=== PATIENT | female | born 1935 | race Caucasian/White ===

== ENCOUNTER → 2017-03-30 | Outpatient (CLI) | payer OTHER ==
[~2017-03-30] VITALS: Ht 152.4 cm; Wt 53.9 kg
[~2017-03-30] MED LIST: ALEN70TA2 PO; AMLO-512 PO; ASCO500T20 PO; ASPI-891 PO; ATOR10TA84 PO; BENA10TA3 PO; CLOP75 PO; DOXY50 PO; DOXY50CA2 PO; LIDOCAINE HCL 2% 5 ML JELLY TP ONE; MULT-1203 PO; TRAM50TA2 PO; VICOT PO; ZINC50TA64 PO
[2017-03-30 09:32] VITALS: BP 130/63
== END | disposition home or self-care (01) ==
LOC: HBOWC 08:55
PROVIDERS: ATTEND Emergency Medicine
DX: T86.828 Other complications of skin graft (allograft) (autograft) (principal); S81.811D Laceration without foreign body, right lower leg, subsequent encounter; I73.9 Peripheral vascular disease, unspecified; I10 Essential (primary) hypertension; Z86.73 Personal history of transient ischemic attack (TIA), and cerebral infarction without residual deficits; Y83.2 Surgical operation with anastomosis, bypass or graft as the cause of abnormal reaction of the patient, or of later complication, without mention of misadventure at the time of the procedure
CPT/HCPCS: 11042; 87070; 87205

== ENCOUNTER → 2017-04-04 | Outpatient (CLI) | payer OTHER ==
[~2017-04-04] MED LIST changes: -CLOP75 PO; -DOXY50 PO; -DOXY50CA2 PO; -LIDOCAINE HCL 2% 5 ML JELLY TP ONE; -VICOT PO
== END | disposition home or self-care (01) ==
LOC: RADPV 10:30
PROVIDERS: ATTEND Emergency Medicine
DX: S81.811A Laceration without foreign body, right lower leg, initial encounter (principal); R22.42 Localized swelling, mass and lump, left lower limb; W18.30XA Fall on same level, unspecified, initial encounter
CPT/HCPCS: 93880; 93925

== ENCOUNTER → 2017-04-06 | Outpatient (CLI) | payer OTHER ==
[2017-04-06 09:41] VITALS: BP 134/65
== END | disposition home or self-care (01) ==
LOC: HBOWC 09:15
PROVIDERS: ATTEND Emergency Medicine
DX: S91.101A Unspecified open wound of right great toe without damage to nail, initial encounter (principal); S81.801D Unspecified open wound, right lower leg, subsequent encounter; I73.9 Peripheral vascular disease, unspecified; Z86.73 Personal history of transient ischemic attack (TIA), and cerebral infarction without residual deficits; I87.2 Venous insufficiency (chronic) (peripheral); I10 Essential (primary) hypertension; X58.XXXD Exposure to other specified factors, subsequent encounter; X58.XXXA Exposure to other specified factors, initial encounter; Y93.89 Activity, other specified; Y92.89 Other specified places as the place of occurrence of the external cause; Y99.8 Other external cause status
CPT/HCPCS: 11042

== ENCOUNTER → 2017-04-13 | Outpatient (CLI) | payer OTHER ==
[~2017-04-13] MED LIST changes: +GENTAMICIN SULFATE 0.1% 15 GM OINTMENT TP ONE; +LIDOCAINE HCL 4% 50 ML SOLUTION TP ONE
[2017-04-13 09:30] VITALS: BP 129/69
== END | disposition home or self-care (01) ==
LOC: HBOWC 09:05
PROVIDERS: ATTEND Emergency Medicine
DX: S81.801D Unspecified open wound, right lower leg, subsequent encounter (principal); I87.2 Venous insufficiency (chronic) (peripheral); I10 Essential (primary) hypertension; I73.9 Peripheral vascular disease, unspecified; Z86.73 Personal history of transient ischemic attack (TIA), and cerebral infarction without residual deficits; X58.XXXD Exposure to other specified factors, subsequent encounter
CPT/HCPCS: 11042

== ENCOUNTER → 2017-04-20 | Outpatient (CLI) | payer OTHER ==
[~2017-04-20] MED LIST changes: -GENTAMICIN SULFATE 0.1% 15 GM OINTMENT TP ONE; -LIDOCAINE HCL 4% 50 ML SOLUTION TP ONE
[2017-04-20 10:40] VITALS: BP 136/65
== END | disposition home or self-care (01) ==
LOC: HBOWC 09:33
PROVIDERS: ATTEND Emergency Medicine
DX: S81.801D Unspecified open wound, right lower leg, subsequent encounter (principal); I87.2 Venous insufficiency (chronic) (peripheral); I10 Essential (primary) hypertension; I73.9 Peripheral vascular disease, unspecified; Z86.73 Personal history of transient ischemic attack (TIA), and cerebral infarction without residual deficits; X58.XXXD Exposure to other specified factors, subsequent encounter
CPT/HCPCS: 11042

== ENCOUNTER → 2017-04-27 | Outpatient (CLI) | payer OTHER ==
[~2017-04-27] MED LIST changes: +GENTAMICIN SULFATE 0.1% 15 GM OINTMENT TP ONE; +LIDOCAINE HCL 2% 5 ML JELLY TP ONE; +LIDOCAINE HCL 4% 50 ML SOLUTION TP ONE
[2017-04-27 08:43] VITALS: BP 133/72
== END | disposition home or self-care (01) ==
LOC: HBOWC 08:29
PROVIDERS: ATTEND Emergency Medicine
DX: S81.801D Unspecified open wound, right lower leg, subsequent encounter (principal); I87.2 Venous insufficiency (chronic) (peripheral); I10 Essential (primary) hypertension; I73.9 Peripheral vascular disease, unspecified; Z86.73 Personal history of transient ischemic attack (TIA), and cerebral infarction without residual deficits; X58.XXXD Exposure to other specified factors, subsequent encounter
CPT/HCPCS: 11042

== ENCOUNTER → 2017-05-11 | Outpatient (CLI) | payer OTHER ==
[~2017-05-11] MED LIST changes: -GENTAMICIN SULFATE 0.1% 15 GM OINTMENT TP ONE; -LIDOCAINE HCL 2% 5 ML JELLY TP ONE; -LIDOCAINE HCL 4% 50 ML SOLUTION TP ONE
[2017-05-11 09:42] VITALS: BP 121/67
== END | disposition home or self-care (01) ==
LOC: HBOWC 08:54
PROVIDERS: ATTEND Emergency Medicine
DX: S81.801D Unspecified open wound, right lower leg, subsequent encounter (principal); I87.2 Venous insufficiency (chronic) (peripheral); I10 Essential (primary) hypertension; I73.9 Peripheral vascular disease, unspecified; Z86.73 Personal history of transient ischemic attack (TIA), and cerebral infarction without residual deficits; X58.XXXD Exposure to other specified factors, subsequent encounter
CPT/HCPCS: 11042

== ENCOUNTER → 2017-05-22 | Outpatient (CLI) | payer OTHER ==
[~2017-05-22] MED LIST changes: +LIDOCAINE HCL 2% 5 ML JELLY TP ONE
[2017-05-22 09:22] VITALS: BP 126/64
== END | disposition home or self-care (01) ==
LOC: HBOWC 08:52
PROVIDERS: ATTEND Emergency Medicine
DX: S81.801D Unspecified open wound, right lower leg, subsequent encounter (principal); I87.2 Venous insufficiency (chronic) (peripheral); I10 Essential (primary) hypertension; I73.9 Peripheral vascular disease, unspecified; Z86.73 Personal history of transient ischemic attack (TIA), and cerebral infarction without residual deficits; X58.XXXD Exposure to other specified factors, subsequent encounter
CPT/HCPCS: 11042

== ENCOUNTER → 2017-05-29 | Outpatient (CLI) | payer OTHER ==
[2017-05-29 10:39] VITALS: BP 123/70
== END | disposition home or self-care (01) ==
LOC: HBOWC 10:06
PROVIDERS: ATTEND Emergency Medicine
DX: S81.801D Unspecified open wound, right lower leg, subsequent encounter (principal); I87.2 Venous insufficiency (chronic) (peripheral); I10 Essential (primary) hypertension; I73.9 Peripheral vascular disease, unspecified; Z86.73 Personal history of transient ischemic attack (TIA), and cerebral infarction without residual deficits; X58.XXXD Exposure to other specified factors, subsequent encounter
CPT/HCPCS: 11042

== ENCOUNTER → 2017-06-05 | Outpatient (CLI) | payer OTHER ==
[~2017-06-05] MED LIST changes: -LIDOCAINE HCL 2% 5 ML JELLY TP ONE
[2017-06-05 10:37] VITALS: BP 133/56
== END | disposition home or self-care (01) ==
LOC: HBOWC 08:36
PROVIDERS: ATTEND Emergency Medicine
DX: S81.801D Unspecified open wound, right lower leg, subsequent encounter (principal); I87.2 Venous insufficiency (chronic) (peripheral); X58.XXXD Exposure to other specified factors, subsequent encounter
CPT/HCPCS: 11042

== ENCOUNTER → 2017-06-12 | Outpatient (CLI) | payer OTHER ==
[2017-06-12 09:11] VITALS: BP 122/71
== END | disposition home or self-care (01) ==
LOC: HBOWC 08:45
PROVIDERS: ATTEND Emergency Medicine
DX: S81.801D Unspecified open wound, right lower leg, subsequent encounter (principal); I87.2 Venous insufficiency (chronic) (peripheral); I10 Essential (primary) hypertension; I73.9 Peripheral vascular disease, unspecified; Z86.73 Personal history of transient ischemic attack (TIA), and cerebral infarction without residual deficits; X58.XXXD Exposure to other specified factors, subsequent encounter
CPT/HCPCS: 11042

== ENCOUNTER → 2017-06-26 | Outpatient (CLI) | payer OTHER ==
[~2017-06-26] MED LIST changes: +LIDOCAINE HCL 2% 5 ML JELLY TP ONE; +SILVER NITRATE APPLICATOR 1 EA STICK TP ONE
[2017-06-26 10:00] VITALS: BP 115/54
== END | disposition home or self-care (01) ==
LOC: HBOWC 10:15
PROVIDERS: ATTEND Emergency Medicine
DX: S81.801D Unspecified open wound, right lower leg, subsequent encounter (principal); I87.2 Venous insufficiency (chronic) (peripheral); I10 Essential (primary) hypertension; I73.9 Peripheral vascular disease, unspecified; Z86.73 Personal history of transient ischemic attack (TIA), and cerebral infarction without residual deficits; X58.XXXD Exposure to other specified factors, subsequent encounter
CPT/HCPCS: 11042; Z7610

== ENCOUNTER → 2017-07-10 | Outpatient (CLI) | payer OTHER ==
[~2017-07-10] MED LIST changes: -LIDOCAINE HCL 2% 5 ML JELLY TP ONE; -SILVER NITRATE APPLICATOR 1 EA STICK TP ONE
[2017-07-10 11:19] VITALS: BP 100/53
== END | disposition home or self-care (01) ==
LOC: HBOWC 09:50
PROVIDERS: ATTEND Emergency Medicine
DX: S81.801D Unspecified open wound, right lower leg, subsequent encounter (principal); I10 Essential (primary) hypertension; I87.2 Venous insufficiency (chronic) (peripheral); I73.9 Peripheral vascular disease, unspecified; Z86.73 Personal history of transient ischemic attack (TIA), and cerebral infarction without residual deficits; X58.XXXD Exposure to other specified factors, subsequent encounter

== ENCOUNTER 2018-10-15 07:02 | Inpatient (IN) | payer OTHER ==
[~2018-10-15] VITALS: Ht 152.4 cm; Wt 54.5 kg
[~2018-10-15 07:02] MED LIST changes: +ALEN70TA10 PO; -ALEN70TA2 PO; -ASCO500T20 PO; +BENA10TA12 PO; -BENA10TA3 PO; +DSS100 PO; +POLY17PO PO; +RINGERS SOLUTION,LACTATED 1,000 ML IV ONE; +SERT50TA12 PO; -ZINC50TA64 PO
[2018-10-15] MEDS ORDERED: TRANEXAMIC ACID 1,000 MG in DEXTROSE 5%-WATER 50 ML IV ONE (08:15)
[2018-10-15] MEDS ORDERED: BUPIVACAINE LIPOSOME/PF 1.3%-13.3MG/ML SUSPENSION 20 ML VIAL INJ ONE (08:15)
[2018-10-15] MEDS ORDERED: HYDROmorphone 2 MG/ML SYRINGE IVP PRN ×2 (08:30)
[2018-10-15] MEDS ORDERED: CYCLOBENZAPRINE HCL 10 MG TABLET PO PRN (08:30)
[2018-10-15] MEDS ORDERED: ONDANSETRON HCL 4 MG/2 ML VIAL IVP PRN ×2 (08:30→12:00)
[2018-10-15] MEDS ORDERED: FentaNYL CITRATE-PF 100 MCG/2 ML VIAL IVP PRN (08:30)
[2018-10-15] MEDS ORDERED: MEPERIDINE-PF 25 MG/ML VIAL IVP PRN (08:30)
[2018-10-15] MEDS ORDERED: OxyCODONE HCL 5 MG IR TABLET PO PRN (08:30)
[2018-10-15] MEDS ORDERED: DEXAMETHASONE SOD PHOS 4 MG/ML VIAL ONE (08:42)
[2018-10-15] MEDS ORDERED: BUPIVACAINE HCL/PF 0.25% 30 ML VIAL ONE (08:42)
[2018-10-15] MEDS ORDERED: CELECOXIB 200 MG CAPSULE ONE (08:47)
[2018-10-15] MEDS ORDERED: ACETAMINOPHEN 1000 MG/ISO-OSM 100 ML IV ONE (08:47)
[2018-10-15] MEDS: ACETAMINOPHEN 1000 MG/ISO-OSM 100 ML IV SCH ×3 (08:51→22:04)
[2018-10-15] MEDS: CELECOXIB 200 MG CAPSULE PO SCH ×2 (08:51→22:04)
[2018-10-15] MEDS ORDERED: BUPIVACAINE HCL/DEX-WATER/PF 0.75% 2 ML AMP ONE (09:01)
[2018-10-15] MEDS ORDERED: PROPOFOL 1000 MG/ISO-OSM 200 ML IV ONE (09:01)
[2018-10-15] MEDS ORDERED: SODIUM CHLORIDE 0.9% 10 ML ONE (09:49)
[2018-10-15] MEDS ORDERED: BACITRACIN 50,000 UNITS/VIAL ONE (09:50)
[2018-10-15] MEDS ORDERED: RINGERS SOLUTION,LACTATED 1,000 ML IV ONE (10:48)
[2018-10-15] MEDS ORDERED: SODIUM CHLORIDE 0.9% 100 ML ONE (10:48)
[2018-10-15] MEDS ORDERED: ZOLPIDEM TARTRATE 10 MG TABLET PO PRN (12:00)
[2018-10-15] MEDS ORDERED: DiphenhydrAMINE HCL 50 MG/ML VIAL IVP PRN (12:00)
[2018-10-15] MEDS ORDERED: MAG HYDROX/AL HYDROX/SIMETH 30 ML SUSP UDCUP PO PRN (12:00)
[2018-10-15] MEDS ORDERED: BISACODYL 10 MG RECTAL RECTAL SUPPOSITORY PR PRN (12:00)
[2018-10-15 13:34] VITALS: BP 142/83
[2018-10-15] MEDS: DEXTROSE 5%-LACTATED RINGERS 1,000 ML IV SCH (15:07)
[2018-10-15 16:14] VITALS: BP 141/88
[2018-10-15] MEDS: CeFAZolin 1 GM/DEXTROSE 50 ML IV SCH (18:12)
[2018-10-15 18:50] LABS: APPEARANCE,URINE CLEAR (CLEAR); BILIRUBIN,URINE NEGATIVE (NEGATIVE); GLUCOSE, URINE (UA) 500 mg/dL (NEGATIVE); KETONES,URINE NEGATIVE (NEGATIVE); LEUKOCYTE ESTERASE ,URINE NEGATIVE (NEGATIVE); NITRATE,URINE NEGATIVE (NEGATIVE); OCCULT BLOOD,URINE NEGATIVE (NEGATIVE); PROTEIN,URINE NEGATIVE (NEGATIVE); UROBILINOGEN,URINE 0.2 mg/dL (<=1.0)
[2018-10-15 18:58] LABS: BACTERIA,URINE Rare /HPF (None Seen); RBC,URINE 0-2 /HPF (0-2); SQUAMOUS EPITHELIAL CELL,UR Few /LPF (None Seen); WBC,URINE 0-2 /HPF (0-5)
[2018-10-15 19:30] VITALS: BP 137/80
[2018-10-15] MEDS ORDERED: OXYGEN THERAPY IH SCH (20:00)
[2018-10-15] MEDS ORDERED: DOCUSATE SODIUM 100 MG CAPSULE PO SCH (21:00)
[2018-10-15] MEDS: DOCUSATE SODIUM 100 MG CAPSULE PO SCH (22:04)
[2018-10-15] MEDS: FAMOTIDINE 20 MG TABLET PO SCH (22:04)
[2018-10-16] VITALS (7 sets, daily range): BP systolic 124–142; BP diastolic 64–76
[2018-10-16] MEDS ORDERED: LIDOCAINE/PF 2% 5 ML VIAL IM ONE (00:26)
[2018-10-16] MEDS ORDERED: EPHEDrine SULFATE 50 MG/ML VIAL IM ONE (00:26)
[2018-10-16] MEDS ORDERED: PROPOFOL 1% 20 ML VIAL IVP ONE (00:26)
[2018-10-16] MEDS ORDERED: FentaNYL CITRATE-PF 100 MCG/2 ML VIAL IVP ONE (00:26)
[2018-10-16] MEDS ORDERED: 0.9% SODIUM CHLORIDE 10 ML VIAL IVP ONE (00:26)
[2018-10-16] MEDS: CeFAZolin 1 GM/DEXTROSE 50 ML IV SCH (03:23)
[2018-10-16] MEDS: ACETAMINOPHEN 1000 MG/ISO-OSM 100 ML IV SCH ×2 (03:29→08:19)
[2018-10-16] MEDS: DEXTROSE 5%-LACTATED RINGERS 1,000 ML IV SCH ×2 (06:06→19:36)
[2018-10-16 06:19] LABS: EOSINOPHILS % (AUTO) 0 % (1.0-6.0); HEMATOCRIT 31.7 % (36-46); LYMPHOCYTES % (AUTO) 5.5 % (22.0-44.0); MEAN CORPUSCULAR HEMOGLOBIN 31.7 pg (26.0-34.0); MEAN CORPUSCULAR HGB CONC 34.7 G/dL (31.0-37.0); MEAN CORPUSCULAR VOLUME 91 fL (80-100); MONOCYTES # (AUTO) 1.2 K/uL (0.1-1.0); MONOCYTES % (AUTO) 6.6 % (2.0-9.0); NEUTROPHILS # (AUTO) 15.4 K/uL (1.8-7.7); PLATELET COUNT (AUTO) 195 K/uL (150-450); RED BLOOD CELL COUNT(AUTO) 3.48 MIL/uL (4.00-5.20); RED CELL DISTRIBUTION WIDTH 13.6 % (11.5-14.5)
[2018-10-16 06:29] LABS: NEUTROPHILS % (AUTO) 87.9 % (40.0-70.0)
[2018-10-16 06:33] LABS: CALCIUM, TOTAL 8.8 mg/dL (8.8-10.5); CREATININE 1.05 mg/dL (0.60-1.30); POTASSIUM 4.1 mmol/L (3.5-5.1)
[2018-10-16] MEDS: CELECOXIB 200 MG CAPSULE PO SCH ×2 (08:04→20:08)
[2018-10-16] MEDS: DOCUSATE SODIUM 100 MG CAPSULE PO SCH ×2 (08:04→20:08)
[2018-10-16] MEDS: ASPIRIN 325 MG EC TABLET PO SCH (08:04)
[2018-10-16] MEDS: POLYETHYLENE GLYCOL 3350 17 GM PACKET PO SCH (08:05)
[2018-10-16] MEDS: AmLODIPine BESYLATE 10 MG TABLET PO SCH (08:05)
[2018-10-16] MEDS: SERTRALINE HCL 50 MG TABLET PO SCH (08:05)
[2018-10-16] MEDS: RIVAROXABAN 10 MG TABLET PO SCH (08:05)
[2018-10-16] MEDS: BENAZEPRIL HCL 10 MG TABLET PO SCH (08:05)
[2018-10-16] MEDS: ATORVASTATIN CALCIUM 10 MG TABLET PO SCH (08:05)
[2018-10-16] MEDS: FAMOTIDINE 20 MG TABLET PO SCH ×2 (08:05→20:08)
[2018-10-16] MEDS: OxyCODONE HCL/ACETAMINOPHEN 10-325 MG TABLET PO PRN (15:06)
[2018-10-17] MEDS: OxyCODONE HCL/ACETAMINOPHEN 10-325 MG TABLET PO PRN ×3 (00:06→17:57)
[2018-10-17 04:30] VITALS: BP 131/74
[2018-10-17 07:17] LABS: BASOPHILS % (AUTO) 0.4 % (0.0-2.0); EOSINOPHILS % (AUTO) 0.5 % (1.0-6.0); HEMATOCRIT 30.3 % (36-46); HEMOGLOBIN 10.1 g/dL (12.0-16.0); LYMPHOCYTES # (AUTO) 1.5 K/uL (1.0-4.8); LYMPHOCYTES % (AUTO) 12.5 % (22.0-44.0); MEAN CORPUSCULAR HGB CONC 33.4 G/dL (31.0-37.0); MEAN CORPUSCULAR VOLUME 93 fL (80-100); MONOCYTES # (AUTO) 1.1 K/uL (0.1-1.0); MONOCYTES % (AUTO) 9.5 % (2.0-9.0); NEUTROPHILS # (AUTO) 9.1 K/uL (1.8-7.7); NEUTROPHILS % (AUTO) 77.1 % (40.0-70.0); PLATELET COUNT (AUTO) 169 K/uL (150-450); RED BLOOD CELL COUNT(AUTO) 3.27 MIL/uL (4.00-5.20)
[2018-10-17 07:45] LABS: ALANINE AMINOTRANSFERASE 13 U/L (12-78); ALBUMIN 3.4 g/dL (3.4-5.0); ALKALINE PHOSPHATASE 56 U/L (46-116); ANION GAP 8 mmol/L (8-16); ASPARTATE AMINOTRANSFERASE 22 U/L (15-37); BILIRUBIN,TOTAL 0.5 mg/dL (0.1-1.0); CALCIUM, TOTAL 8.7 mg/dL (8.8-10.5); CARBON DIOXIDE 28 mmol/L (22-29); CHLORIDE 103 mmol/L (98-107); CREATININE 0.83 mg/dL (0.60-1.30); GLUCOSE,RANDOM 110 mg/dL (70-110); POTASSIUM 4.4 mmol/L (3.5-5.1); SODIUM SERUM 139 mmol/L (136-145); TOTAL PROTEIN, SERUM 6.5 g/dL (6.4-8.2); UREA NITROGEN, BLOOD 17 mg/dL (7-18)
[2018-10-17 07:47] LABS: GLOMERULAR FILTR. RATE CALC > 60 mL/min (>60)
[2018-10-17 08:04] VITALS: BP 160/77
[2018-10-17] MEDS: CELECOXIB 200 MG CAPSULE PO SCH (08:16)
[2018-10-17] MEDS: POLYETHYLENE GLYCOL 3350 17 GM PACKET PO SCH (08:16)
[2018-10-17] MEDS: AmLODIPine BESYLATE 10 MG TABLET PO SCH (08:17)
[2018-10-17] MEDS: FAMOTIDINE 20 MG TABLET PO SCH (08:17)
[2018-10-17] MEDS: SERTRALINE HCL 50 MG TABLET PO SCH (08:17)
[2018-10-17] MEDS: DOCUSATE SODIUM 100 MG CAPSULE PO SCH (08:17)
[2018-10-17] MEDS: ATORVASTATIN CALCIUM 10 MG TABLET PO SCH (08:17)
[2018-10-17] MEDS: ASPIRIN 325 MG EC TABLET PO SCH (08:17)
[2018-10-17] MEDS: BENAZEPRIL HCL 10 MG TABLET PO SCH (08:17)
[2018-10-17 15:46] VITALS: BP 102/54
[2018-10-17] MEDS: RIVAROXABAN 10 MG TABLET PO SCH (17:57)
[2018-10-22] MEDS ORDERED: ALENDRONATE SODIUM 70 MG TABLET PO SCH (06:30)
== END 2018-10-17 18:38 | DRG 470 ==
LOC: 4E 07:02
PROVIDERS: ADMIT Orthopaedic Surgery; ATTEND Orthopaedic Surgery
PROC: 3E0T3BZ Introduction of Anesthetic Agent into Peripheral Nerves and Plexi, Percutaneous Approach (ICD-10-PCS; 2018-10-15)
PROC: 0SRD0J9 Replacement of Left Knee Joint with Synthetic Substitute, Cemented, Open Approach (ICD-10-PCS; principal; 2018-10-15 10:00)
DX: M17.12 Unilateral primary osteoarthritis, left knee (principal); I10 Essential (primary) hypertension; E78.5 Hyperlipidemia, unspecified; K59.09 Other constipation; M21.162 Varus deformity, not elsewhere classified, left knee; M81.0 Age-related osteoporosis without current pathological fracture; I25.10 Atherosclerotic heart disease of native coronary artery without angina pectoris; F32.9 Major depressive disorder, single episode, unspecified; Z95.2 Presence of prosthetic heart valve; Z79.82 Long term (current) use of aspirin; Z79.899 Other long term (current) drug therapy; Z90.49 Acquired absence of other specified parts of digestive tract; I25.2 Old myocardial infarction; Z95.1 Presence of aortocoronary bypass graft
CPT/HCPCS: 87081; 88300; 93005; 97110; 97116; 97161; 97166; 97530; 97535; C9290; G0238; G0378; J0131; J0690; J1100; J1170; J2704; J3010; J3490; J7050; J7060; J7120